=== PATIENT | female | born 1975 | race Caucasian/White ===

== ENCOUNTER → 2018-12-14 20:13 | Outpatient (CLI) | payer BC ==
[2016-05-20 07:06] VITALS: BMI 30.4
[~2018-12-14 20:13] MED LIST: ADIPEX-P37.5 M1 PO; HYDROCODONE-APA1 TAB PO; MULTIPLE VITAMI1 TA1 PO; OS-CAL500 MG PO; VITAMIN B-121000 MCG PO; VITAMIN D31000 UNI2 PO
== END | disposition home or self-care (01) ==
LOC: D.MAMMO 14:45
DX: M20.22 Hallux rigidus, left foot (principal); M20.42 Other hammer toe(s) (acquired), left foot; G57.62 Lesion of plantar nerve, left lower limb; M21.622 Bunionette of left foot